=== PATIENT | male | born 1965 | race American Indian/Alaskan Native ===

== ENCOUNTER 2020-11-08 08:12 | Outpatient (CLI) | payer OTHER ==
--- NOTE | 2020-11-08 09:54 | Cat Scan Report ---
CT ABDOMEN AND PELVIS WITHOUT CONTRAST INDICATION / CLINICAL INFORMATION: PROSTATE CANCER. TECHNIQUE: Axial CT images were obtained through the abdomen and pelvis without IV contrast. All CT scans at this location are performed using CT dose reduction for ALARA by means of automated exposure control. COMPARISON: None available. FINDINGS: LOWER CHEST: Small hiatal hernia. LIVER: Unremarkable GALLBLADDER/BILIARY TREE: Unremarkable PANCREAS: Unremarkable SPLEEN: Unremarkable ADRENALS: Unremarkable KIDNEYS / URETER: Unremarkable URINARY BLADDER: Unremarkable REPRODUCTIVE ORGANS: Prostate is enlarged, measuring 4.8 cm transversely. STOMACH / SMALL BOWEL: Stomach and small bowel are normal in caliber. No evidence of bowel inflammati on. COLON: The colon is unremarkable. The appendix is normal in caliber. LYMPH NODES: No significant adenopathy. VASCULATURE: No significant abnormality. OTHER: No free air, free fluid, or focal fluid collection is identified. Postsurgical changes related to right inguinal hernia repair. SKELETAL SYSTEM: No acute osseous findings. IMPRESSION: 1. No acute process. 2. Mild prostatomegaly, measuring 4.8 cm transversely. 3. No evidence of metastatic disease in the abdomen or pelvis by noncontrast CT. Signer Name: Damon Quinones MD Signed: 11/08/2020 9:49 AM Workstation Name: [id number]
--- NOTE | 2020-11-08 11:42 | Nuclear Medicine Report ---
NUCLEAR MEDICINE BONE SCAN, WHOLE BODY INDICATION: PROSTATE CANCER. TECHNIQUE: 25.5 mCi of Tc-99m MDP were injected IV. Whole body images were obtained. COMPARISON: CT abdomen pelvis without contrast performed the same day.. FINDINGS: Skeletal Structures: Fairly symmetric, likely degenerative uptake is present involving the shoulders and sternoclavicular joint.. Skeletal Lesions: None. Soft Tissues: Normal. Kidneys: Normal, symmetric activity. Additional Findings: None. IMPRESSION: No evidence for osseous metastasis on bone scan. Signer Name: Norman Alvarez Jr, MD Signed: 11/08/2020 11:38 AM Workstation Name: [id number]
== END 2020-11-08 08:13 | disposition home or self-care (01) ==
LOC: NM 08:12
PROVIDERS: ATTEND Urology
DX: C61 Malignant neoplasm of prostate (principal); K44.9 Diaphragmatic hernia without obstruction or gangrene; N40.0 Benign prostatic hyperplasia without lower urinary tract symptoms
CPT/HCPCS: 74176; 78306; A9503